=== PATIENT | female | born 1945 | race Caucasian/White ===

== ENCOUNTER 2019-04-02 06:15 | Observation (INO) ==
[2019-04-02] MEDS ORDERED: Albuterol 2.5 MG/3 ML NEBULIZER IH PRN (06:43)
[2019-04-02] MEDS ORDERED: Clindamycin 900 MG/50 ML 900 MG/50 ML IV.SOLN IVPB ONE (06:43)
[2019-04-02] MEDS ORDERED: *HR* OxyCODONE Immed Rel 5 MG TABLET PO PRN ×3 (06:57→15:21)
[2019-04-02] MEDS ORDERED: *HR* Labetalol 20 MG/4 ML SYRINGE IVP PRN ×2 (06:57→15:21)
[2019-04-02] MEDS ORDERED: *HR* HYDROmorphone (PF) 1 MG/ML SYRINGE IVP PRN (06:57)
[2019-04-02] MEDS ORDERED: Dexamethasone 4 MG/ML VIAL ONE (07:01)
[2019-04-02] MEDS ORDERED: Neostigmine Methylsulfate 3 MG/3 ML SYRINGE ONE (07:01)
[2019-04-02] MEDS ORDERED: *HR* Propofol 200 MG/20 ML VIAL IVP ONE (07:01)
[2019-04-02] MEDS ORDERED: Lidocaine -MPF 2% 2 ML VIAL ONE (07:01)
[2019-04-02] MEDS ORDERED: *HR* Rocuronium Bromide 50 MG/5 ML VIAL ONE (07:01)
[2019-04-02] MEDS ORDERED: Ondansetron 4 MG/2 ML VIAL ONE (07:01)
[2019-04-02] MEDS ORDERED: Heparin 1,000 UNITS/500 mL 500 ML ONE ×2 (07:01→07:23)
[2019-04-02] MEDS ORDERED: *HR* Remifentanil 2 MG VIAL IVP ONE (07:02)
[2019-04-02] MEDS ORDERED: *HR* Heparin 5,000 UNIT/ML VIAL ONE (07:17)
[2019-04-02] MEDS ORDERED: Protamine Sulfate 50 MG/5 ML VIAL IVP ONE (07:21)
[2019-04-02] MEDS ORDERED: Bupivacaine-MPF 0.25% 10 ML VIAL ONE (07:21)
[2019-04-02] MEDS ORDERED: Lidocaine -MPF 1% 2 ML AMPUL ONE (07:34)
[2019-04-02] MEDS ORDERED: Vancomycin 1,000 MG, Sodium Chloride IRRigation 1,000 ML IR ONE (07:45)
[2019-04-02] MEDS ORDERED: *HR* Midazolam HCl 2 MG/2 ML VIAL ONE (08:01)
[2019-04-02] MEDS ORDERED: EPHEDrine 50 MG/ML VIAL ONE ×2 (08:16→11:39)
[2019-04-02] MEDS ORDERED: EPHEDrine 50 MG/ML VIAL IVP ONE ×2 (11:38→11:51)
[2019-04-02] MEDS: Ringers Solution, Lactated 1,000 ML IVC SCH ×2 (11:50→12:39)
[2019-04-02] MEDS ORDERED: 0.9 % Sodium Chloride 1,000 ML IVC SCH (15:21)
[2019-04-02] MEDS ORDERED: *HR* HYDROcodone/Acet 5/325 mg TABLET PO PRN ×2 (15:21)
[2019-04-02] MEDS ORDERED: Naloxone 0.4 MG/ML INJ IVP PRN (15:21)
[2019-04-02] MEDS ORDERED: Acetaminophen 325 MG TABLET PO PRN ×2 (15:21)
[2019-04-02] MEDS ORDERED: Ondansetron 4 MG/2 ML VIAL IVP PRN (15:21)
[2019-04-03] MEDS ORDERED: *HR* Heparin 5,000 UNIT/ML VIAL SQ SCH ×2 (06:00)
[2019-04-03 07:42] VITALS: BP 141/56
[2019-04-03] MEDS ORDERED: Loratadine 10 MG TABLET PO SCH (09:00)
[2019-04-03] MEDS ORDERED: hydroCHLOROthiazide 25 MG TABLET PO SCH (09:00)
[2019-04-03] MEDS ORDERED: Fenofibrate 54 MG TABLET PO SCH (09:00)
[2019-04-03] MEDS ORDERED: *HR* Metoprolol 5 MG/5 ML VIAL IVP SCH (09:00)
[2019-04-03] MEDS ORDERED: Metoprolol XL (24 HR) Succ 50 MG TAB.ER.24H PO SCH (09:00)
[2019-04-03] MEDS ORDERED: amLODIPine 5 MG TABLET PO SCH (09:00)
[2019-04-03] MEDS ORDERED: Aspirin Enteric Coated 81 MG Tablet PO SCH (09:00)
[2019-04-03] MEDS ORDERED: Valsartan 160 MG TABLET PO SCH (09:00)
== END 2019-04-03 09:32 | disposition home or self-care (01) | DRG 39 ==
LOC: SAMDAY 06:15 → INTOOBSV 13:02 → 2NNU 13:02
PROVIDERS: ADMIT Surgery; ATTEND Surgery